=== PATIENT | male | born 1980 | race Caucasian/White ===

== ENCOUNTER 2017-01-22 01:42 | Emergency (ER) | payer SELFPAY | END 2017-01-22 02:00 | disposition left against medical advice (07) | LOC: ER1 01:42 | DX: Z53.21 Procedure and treatment not carried out due to patient leaving prior to being seen by health care provider (principal) ==

== ENCOUNTER 2017-01-25 16:52 | Emergency (ER) | payer OTHER ==
[2017-01-25 18:30] LABS: HEMOGLOBIN 16.1 gm/dl (14.0-17.5); RED BLOOD COUNT 5.21 M/UL (4.20-5.50); WHITE BLOOD COUNT 10.2 K/UL (4.5-11.0)
[2017-01-25 18:35] LABS: BUN/CREATININE RATIO 14 (0-10)
== END 2017-01-25 19:34 | disposition home or self-care (01) ==
LOC: ER1 16:52
PROVIDERS: Physician Assistant Medical
DX: N13.2 Hydronephrosis with renal and ureteral calculous obstruction (principal); K21.9 Gastro-esophageal reflux disease without esophagitis; Z79.899 Other long term (current) drug therapy
CPT/HCPCS: 36415; 80053; 81001; 82150; 83690; 85025; 96372; 99284; J1885